=== PATIENT | male | born 1990 | race Caucasian/White ===

== ENCOUNTER 2017-03-03 14:41 | Emergency (ER) | payer SELFPAY ==
[~2017-03-03] VITALS: Ht 182.9 cm; Wt 64.4 kg
[2017-03-03 14:43] VITALS: Ht 182.9 cm; Wt 64.4 kg
--- NOTE | 2017-03-03 14:43 | NUR ---
PROVIDER DR JENSEN IN TO SEE PATIENT.
--- OUTSIDE RECORDS SUMMARY | 2017-03-03 14:48 | XMS REPORT | Continuity of Care Document ---
Author Author [facility] Organization [facility] Address Unknown Phone Unavailable Allergies Active Description Code Type Severity Reaction Onset Reported/Identified Relationship to Patient Clinical Status Yes No Known Allergies NKA Miscellaneous Allergy Unknown N/A 03/12/2016 Yes No Known Allergies [id number] Drug Allergy N/A N/A 02/02/2017 Medications Problems Date Dx Coded Attending Type Code Diagnosis Diagnosed By 03/12/2016 SHAKIR BAUMAN DO M54.16 03/12/2016 SHAKIR BAUMAN DO S33.5XXA 03/12/2016 SHAKIR BAUMAN DO S39.012A 03/12/2016 SHAKIR BAUMAN DO S60.812A 03/12/2016 SHAKIR BAUMAN DO W17.89XA 03/12/2016 SHAKIR BAUMAN DO Other Y92.69 03/12/2016 SHAKIR BAUMAN DO Other Y93.89 03/12/2016 SHAKIR BAUMAN DO Other Y99.0 03/12/2016 SHAKIR BAUMAN DO Z23 Procedures Results Test Result Range DRUG SCREEN, URINE - 02/02/17 17:17 AMPHETAMINE SCREEN,URINE POSITIVE NONE DETECT BARBITURATES SCREEN,URINE NONE DETECTED NONE DETECT BENZODIAZEPINES SCREEN,URINE POSITIVE NONE DETECT CANNABINOID SCREEN, URINE NONE DETECTED NONE DETECT COCAINE SCREEN, URINE NONE DETECTED NONE DETECT ECSTASY (MDMA) SCRN UR POSITIVE NONE DETECT OPIATE SCREEN, URINE NONE DETECTED NONE DETECT Encounters ACCT No. Visit Date/Time Discharge Status Pt. Type Provider Facility Loc./Unit Complaint [id number] 03/12/2016 14:03:00 2015 18:00:00 DIS Emergency SHAKIR BAUMAN DO [facility] ER
[2017-03-03] MEDS ORDERED: PHEN-412 PO ×2 (14:49→14:50)
--- OUTSIDE RECORDS SUMMARY | 2017-03-03 14:58 | XMS REPORT | Continuity of Care Document ---
Author Author [facility] Organization [facility] Address Unknown Phone Unavailable Allergies Active Description Code Type Severity Reaction Onset Reported/Identified Relationship to Patient Clinical Status Yes No Known Allergies NKA Miscellaneous Allergy Unknown N/A 03/12/2016 Yes No Known Allergies [id number] Drug Allergy N/A N/A 02/02/2017 Medications Problems [...] Status Pt. Type Provider Facility Loc./Unit Complaint [id number] 03/12/2016 14:03:00 2015 18:00:00 DIS Emergency SHAKIR BAUMAN DO [facility] ER
--- NOTE | 2017-03-03 15:16 | NUR ---
BACK FROM CT
--- NOTE | 2017-03-03 15:18 | NUR ---
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
--- NOTE | 2017-03-03 15:24 | DI ---
Indication: ITS.REASON: Head pain after fall and head trauma PROCEDURE: CT HEAD W/O CONTRAST: Encounter: Initial Comparison: None Technique: Axial CT images through the head were performed without contrast. Iterative Reconstruction dose reducing technique was utilized. FINDINGS: The ventricles are of normal size, shape, and configuration for the patient's age. There is no evidence of acute intracranial hemorrhage, midline displacement, or mass effect. The CT attenuation of the brain parenchyma is normal within the cerebellum, brain stem, and cerebral hemispheres. The tympanic cavities and mastoid air cells are free of appreciable disease. There are no definite fractures of the skull base, calvarium, or visualized portion of the midface. IMPRESSION: No CT evidence of acute traumatic intracranial injury. .
--- NOTE | 2017-03-03 15:27 | DI ---
Indication: ITS.REASON: fall with head and neck pain PROCEDURE: CT CERVICAL SPINE W/O CONTRAST: Encounter: Initial Comparison: None Technique: Axial CT images through the cervical spine were performed without contrast. Coronal and sagittal reformatted images were also obtained. Automated Exposure Control and Iterative Reconstruction dose reducing techniques were utilized. FINDINGS: The alignment of the cervical spine is normal. There is no evidence of acute fracture or subluxation of the cervical spine. The facet joints are well aligned with preservation of the intervertebral disk and facet joints. The atlantoaxial articulation, dens, and upper cervical spine demonstrate no subluxation. There is no evidence of significant spinal stenosis, foraminal compromise, or significant disk herniation. The paraspinal soft tissues and spinal canal appear unremarkable. IMPRESSION: No acute traumatic abnormality of the cervical spine. .
--- NOTE | 2017-03-03 15:28 | DI ---
Indication: ITS.REASON: anxiety PROCEDURE: CHEST 1 VIEW: Encounter: Initial Comparison: None FINDINGS: The lungs are clear. There is no abnormal airspace opacity, pleural effusion or pneumothorax identified. The heart size, pulmonary vasculature and mediastinum are within normal limits. No significant skeletal abnormality is seen. IMPRESSION: No acute cardiopulmonary abnormality. .
[2017-03-03 15:37] LABS: ALBUMIN 4.1 G/DL (3.5-5.0); ALBUMIN/GLOBULIN RATIO 1.3 RATIO (1.1-2.2); ALKALINE PHOSPHATASE 86 U/L (38-126); ALT (SGPT) 35 U/L (21-72); ANION GAP 12 MEQ/L (5-15); AST (SGOT) 24 U/L (17-59); BUN/CREATININE RATIO 13 RATIO (6-26); CALCIUM 9.3 MG/DL (8.4-10.2); CHLORIDE 104 MEQ/L (98-107); CO2 - CARBON DIOXIDE 29 MEQ/L (22-30); CREATININE 0.8 MG/DL (0.8-1.5); GLOMERULAR FILTRATION RATE 117; GLUCOSE 95 MG/DL (75-110); POTASSIUM 4.2 MEQ/L (3.6-5); SODIUM 145 MEQ/L (134-144); TOTAL PROTEIN 7.2 G/DL (6.3-8.2)
[2017-03-03 15:39] LABS: BASOPHILS % (AUTO) 0.4 % (0-2); EOSINOPHILS # (AUTO) 0.2 T/MM3 (0-0.5); HGB - HEMOGLOBIN 14.6 GM/DL (13.5-17.5); LYMPHOCYTES # (AUTO) 1.8 T/MM3 (1-4.8); LYMPHOCYTES % (AUTO) 35.7 % (23-45); MEAN CORPUSCULAR HGB 30.2 UUG (26-34); MEAN CORPUSCULAR HGB CONC(MCHC 33.2 GM/DL (31-37); MEAN CORPUSCULAR VOLUME 90.9 UM3 (80-100); MEAN PLATELET VOLUME 9.4 UM3 (9.4-12.4); MONOCYTES # (AUTO) 0.3 T/MM3 (0-0.8); MONOCYTES % (AUTO) 5.2 % (0-9.0); NEUTROPHILS #(AUTO)-ABSOLUTE 2.8 T/MM3 (1.8-7.7); NEUTROPHILS % (AUTO) 55.7 % (33-66); RED BLOOD COUNT 4.84 M/MM3 (4.50-5.90)
[2017-03-03] MEDS ORDERED: NORMAL SALINE 1,000 ML IV ONE (15:45)
[2017-03-03] MEDS ORDERED: LORA-204 PO (16:32)
--- NOTE | 2017-03-03 16:33 | ERPDOC ---
Departure Disposition Decision Date: Mar 03, 2017 Disposition Decision Time: 16:31 Disposition: 01 DISCHARGED HOME, SELF-CARE Impression Impression Impression: Primary Impression: Anxiety Severity: Mild Condition: Improved Seen By: Physician only Referrals: [facility] 2 Days Patient Instructions: Anxiety (ED) Problems/Meds/Labs Reviewed?: Yes Medications reviewed and manag: Yes Follow up care ordered?: Yes Mental Status: Alert, Oriented Scripts Lorazepam (Ativan) 1 Mg Tablet 1 MG PO TID for 3 Days, #9 TAB 0 Refills Prov: SHANTEL SOLORZANO DO 03/03/17 HPI - General Medical General Chief Complaint: Acute Medical Problem Stated Complaint: ANXIETY Time Seen by Provider: 14:44 Source: patient Exam Limitations: no limitations HPI - General Medical Initial Comments 27-year-old male with a history of anxiety presents to the emergency department with an acute exacerbation of anxiety. This is a typical exacerbation of the patient's anxiety. Patient was prescribed Ativan recently but has lost his prescription and was not able to fill it. Patient denies any pain or discomfort. Patient denies any other complaints or associated symptoms. Patient was at [facility] and was undergoing drug rehabilitation when the symptoms began. Patient noted the symptoms had a gradual onset in nature. Symptoms resolved prior to arrival to the emergency department. He does not note any exacerbating or remitting factors. Occurred At: other Onset: Gradual Allergies: Coded Allergies: No Known Allergies (Unverified , 03/03/17) Past History Past Medical History Psychological: anxiety Surgical History Denies Surgeries Family History Family History: Negative Social History Smoking Status: Never smoker Substance Use Type: former substance user Alcohol Intake: none Review of Systems Constitutional Constitutional: DENIES: chills, fever Eyes General: DENIES: burning, itching Lids/Accessories: DENIES: erythema, swelling Vision: DENIES: acuity, blurring ENMT Ears: DENIES: drainage, erythema Hearing: DENIES: hearing loss Balance: DENIES: ataxia, falling to one side Sinuses: DENIES: congestion, pain Nose: DENIES: nosebleeds, pain Mouth/Throat: DENIES: painful swallowing, sore throat Teeth: DENIES: pain Jaw: DENIES: pain Cardiovascular Cardiac: DENIES: chest pain, dyspnea on exertion Rhythm/Rate: DENIES: irregular beat, palpitations Vascular: DENIES: pedal edema, unilateral swelling Pulmonary Respiratory: DENIES: cough, dyspnea, pleuritic chest pain, sputum GI Upper Abdomen: DENIES: nausea, pain, vomiting Lower Abdomen: DENIES: diarrhea, pain General: DENIES: dysuria, frequency Musculoskeletal General: DENIES: joint pain, tenderness Integumentary Skin: DENIES: itching, rash Neurological General: DENIES: headache, numbness, weakness Psychiatric Psychiatric: anxiety, DENIES: emotional instability, suicidal ideation/attempt Endocrine Endocrine: DENIES: polydipsia, polyphagia Hematologic/Lymphatic Hematologic/Lymphatic: DENIES: frequent nosebleeds, lymphadenopathy Allergic/Immunological Allergic/Immunoligical: DENIES: allergic reactions, hives Physical Exam General General Nourishment: well nourished, well developed, appears stated age, no acute distress, adult General Body Habitus: well groomed Vitals and Pain First Documented Vital Signs Date Time Temp Pulse Resp B/P Pulse Ox O2 Delivery O2 Flow Rate FiO2 03/03/17 14:43 98.0 85 16 117/76 98 Room Air Weight: Kilograms: 64.400 Height (feet): 6 Height (inches): 0 Triage Pain Scale: RN VS reviewed by Provider: Yes Normal Exams: Head: Normocephalic w/o trauma Eyes: Pupils are PERRLA w/ EOMI, No scleral icterus, irritation, or foreign bodies noted ENMT: No facial trauma, nasal exudates, pharyngeal erythema, or exudates are noted Dental: No fractured, loose, or missing teeth noted Neck: Full range of motion, without adenopathy, JVD, bruits or thyromegaly Chest/Resp: Clear all storey, with good airflow, and symmetry bilaterally CV: Regular rate and rhythm, without murmur or gallop, Pulses 2+ all extremities, capillary refill, <2 seconds all ext., no pedal edema noted Abdomen: Bowel sounds positive, soft, non-tender, non-distended, no hepatosplenomegaly, masses or bruits noted Lymphatic: No lymphadenopathy, or lymphedema noted Musculoskeletal: No tenderness, or deformity noted, good range of motion, all extremities Integumentary: No rashes, hives, or bruising noted, hair and nails, without abnormality Neurologic: Patient is alert, and oriented, cranial nerves, motor/sensory/ cerebellar, exams w/o gross deficits, to observation Psychiatric: Patient exhibits, appropriate attention, emotion and affect Differential Diagnoses Considering: Depression, Medication Effect, Metabolic, Other (anxiety) Progress Results/Orders Orders Procedure Category Date Status Time Cbc W/Auto LAB 03/03/17 Complete Diff-Reflex Manual Cmp - Comprehensive LAB 03/03/17 Complete Metabolic Troponin I W LAB 03/03/17 Complete Hemolysis Index EKG EKG 03/03/17 Taken Chest 1 View RAD 03/03/17 Resulted 14:45 Ct Head W/O Contrast CT 03/03/17 Resulted 14:45 Ct Cervical Spine W/O CT 03/03/17 Resulted Contrast 14:45 Normal Saline (Normal PHA 03/03/17 Complete Saline Iv) 15:45 Lab Results Laboratory Tests Test 03/03/17 15:21 White Blood Count 5.0T/MM3 Red Blood Count 4.84M/MM3 Hemoglobin 14.6GM/DL Hematocrit 44.0% Mean Corpuscular Volume 90.9UM3 Mean Corpuscular Hemoglobin 30.2UUG Mean Corpuscular Hemoglobin Concent 33.2GM/DL RDW Standard Deviation 41.1FL Platelet Count 249T/MM3 Mean Platelet Volume 9.4UM3 Immature Granulocyte % (Auto) 0.0% Neutrophils (%) (Auto) 55.7% Lymphocytes (%) (Auto) 35.7% Monocytes (%) (Auto) 5.2% Eosinophils (%) (Auto) 3.0% Basophils (%) (Auto) 0.4% Absolute Immature Granulocyte (auto 0.00T/MM3 Absolute Neutrophils (auto) 2.8T/MM3 Absolute Lymphocytes (auto) 1.8T/MM3 Absolute Monocytes (auto) 0.3T/MM3 Absolute Eosinophils (auto) 0.2T/MM3 Absolute Basophils (auto) 0.0T/MM3 Turbidity < 20 Sodium Level 145MEQ/L Potassium Level 4.2MEQ/L Chloride Level 104MEQ/L Carbon Dioxide Level 29MEQ/L Anion Gap 12MEQ/L Blood Urea Nitrogen 10.0MG/DL Creatinine 0.8MG/DL Glomerular Filtration Rate Calc 117 BUN/Creatinine Ratio 13RATIO Glucose Level 95MG/DL Calculated Osmolality 278MOSM/KG Calcium Level 9.3MG/DL Total Bilirubin 0.90MG/DL Icterus Index < 2 Aspartate Amino Transf (AST/SGOT) 24U/L Alanine Aminotransferase (ALT/SGPT) 35U/L Alkaline Phosphatase 86U/L Troponin I < 0.012ng/ml Total Protein 7.2G/DL Albumin 4.1G/DL Globulin 3.1G/DL Albumin/Globulin Ratio 1.3RATIO Chemistry Specimen Hemolysis < 15 Medications Current ED Medications Sodium Chloride (Normal Saline IV) 1,000 ml @ 999 mls/hr Q1H1M ONCE IV Last administered on 03/03/17t 15:50; Start 03/03/17 at 15:45; Stop 03/03/17 at 16:39; Status DC Progress Progress Labs/imaging were discussed in detail with the patient and questions are answered. Patient is given IV hydration. Patient is discharged home in improved condition. He is to follow up as instructed. Patient is to return to the emergency department if his condition worsens or changes in any manner. Patient is in agreement with the current plan of management. He is to follow up as instructed. Patient denies homicidal/suicidal ideation or plan. Patient denies any self injury or self-harm. prescription for Ativan is provided. CT head/C-spine: Negative EKG EKG : Rate: 60-100 Rhythm: sinus [place]: normal QRS: normal Intervals: normal ST/T: normal Interpreted by: signing physician Xray Xray : Xray: CXR Portable Interpretation: Normal, Interpreted by Me, Reviewed Written Report SHANTEL SOLORZANO DO Mar 03, 2017 16:33
[2017-03-03 16:39] VITALS: BP 117/76; PULSE 85; RESP 16; TEMP 98; O2SAT 98
== END 2017-03-03 16:39 | disposition home or self-care (01) ==
LOC: ED 14:41
DX: F41.9 Anxiety disorder, unspecified (principal)
CPT/HCPCS: 36415; 80053; 84484; 85025; 93005